=== PATIENT | female | born 1985 | race Caucasian/White ===

== ENCOUNTER 2020-01-07 06:16 | Inpatient (IN) ==
[2020-01-07] MEDS ORDERED: Azithromycin 500 MG in 0.9 % Sodium Chloride 250 ML IVPB ONE (06:25)
[2020-01-07] MEDS ORDERED: Naloxone 0.4 MG/ML INJ IVP PRN (06:25)
[2020-01-07] MEDS ORDERED: Ondansetron 4 MG/2 ML VIAL IVP PRN (06:25)
[2020-01-07] MEDS ORDERED: Lidocaine 1% 20 ML MDV ID PRN (06:25)
[2020-01-07] MEDS ORDERED: *HR* FentaNYL (PF) 100 MCG/2 ML VIAL IVP PRN (06:25)
[2020-01-07] MEDS ORDERED: Famotidine 20 MG/2 ML VIAL IVP PRN (06:25)
[2020-01-07] MEDS ORDERED: Metoclopramide 10 MG/2 ML VIAL IVP PRN (06:25)
[2020-01-07] MEDS ORDERED: Oxytocin 20 units/ LR 1000 mL 20 UNIT/1,000 ML BAG IVC SCH ×3 (06:30→23:31)
[2020-01-07] MEDS: Ringers Solution, Lactated 1,000 ML IVC SCH ×2 (06:41→13:11)
[2020-01-07 06:49] LABS: Basophils % 0.2 %; Eosinophils # 0.1 K/mcL (0.0-0.6); Eosinophils % 1.2 %; Hematocrit 35.2 % (35.3-44.9); Hemoglobin 12.1 g/dL (11.5-15.4); Immature Granulocytes % 0.5 % (0-4); Lymphocytes # 3.4 K/mcL (0.6-4.6); Lymphocytes % 35.5 %; Mean Corpuscular HGB Conc 34.4 g/dL (31.6-35.5); Mean Corpuscular Hemoglobin 30.6 pg (28.0-33.3); Mean Corpuscular Volume 89.1 fL (83.0-100.0); Mean Platelet Volume 12.5 fL (9.4-12.4); Monocytes # 0.6 K/mcL (0.0-1.3); Monocytes % 6.7 %; Neutrophils # 5.3 K/mcL (1.6-8.9); Platelet Count 172 K/mcL (140-400); Red Blood Count 3.95 M/mcL (3.82-4.97); Red Cell Distribution Width 14.1 % (11.5-14.5); Segmented Neutrophils % 55.9 %; White Blood Count 9.5 K/mcL (4.3-11.1)
[2020-01-07 07:27] LABS: Amphetamine Screen,Urine Negative ng/mL (Cutoff=1000); Barbiturate Screen,Urine Negative ng/mL (Cutoff=200)
[2020-01-07 07:28] LABS: Benzodiazepines Screen,Urine Negative ng/mL (Cutoff=300); Cannabinoid Screen,Urine Negative ng/mL (Cutoff = 50); Cocaine Screen,Urine Negative ng/mL (Cutoff= 300); Opiate Screen,Urine Negative ng/mL (Cutoff=300); Phencyclidine Screen,Urine Negative ng/mL (Cutoff=25)
[2020-01-07] MEDS ORDERED: miSOPROStoL 25 MCG TABLET PO PRN (08:10)
[2020-01-07] MEDS ORDERED: Ropivacaine/PF 0.2% 20 ML VIAL ONE (13:09)
[2020-01-07] MEDS ORDERED: *HR* FentaNYL (PF) 100 MCG/2 ML VIAL ONE (13:09)
[2020-01-07] MEDS ORDERED: Epidural Premix (fent/bupiv) 110 ML EP ONE (13:10)
[2020-01-07] MEDS ORDERED: 0.9 % Sodium Chloride 1,000 ML ONE (15:17)
[2020-01-07 18:27] LABS: Basophils % 0.2 %; Eosinophils % 0.2 %; Hemoglobin 11.3 g/dL (11.5-15.4); Immature Granulocytes % 0.6 % (0-4); Lymphocytes # 2.5 K/mcL (0.6-4.6); Lymphocytes % 19.7 %; Mean Corpuscular HGB Conc 32.3 g/dL (31.6-35.5); Mean Corpuscular Hemoglobin 29.3 pg (28.0-33.3); Mean Corpuscular Volume 90.7 fL (83.0-100.0); Monocytes # 0.8 K/mcL (0.0-1.3); Monocytes % 6.5 %; Neutrophils # 9.2 K/mcL (1.6-8.9); Platelet Count 144 K/mcL (140-400); Red Blood Count 3.86 M/mcL (3.82-4.97); Red Cell Distribution Width 14.4 % (11.5-14.5); Segmented Neutrophils % 72.8 %; White Blood Count 12.6 K/mcL (4.3-11.1)
[2020-01-07 18:29] LABS: Protein/Creatinine Ratio,Urine 0.32 mg/mg (0.00-0.20)
[2020-01-07 18:41] LABS: Alanine Aminotransferase 17 Units/L (7-52); Aspartate Amino Transferase 22 Units/L (13-39); BUN/Creatinine Ratio 14 (6-26); Blood Urea Nitrogen 8 mg/dL (6-20); Lactate Dehydrogenase 165 Units/L (140-271); Uric Acid 5.1 mg/dL (2.3-7.6); eGFR For African Americans > 60 (> 60); eGFR For Non-African Americans > 60 (> 60)
[2020-01-07] MEDS ORDERED: Measles/Mumps/Rubella Vacc 0.5 ML VIAL SQ PRN (23:31)
[2020-01-07] MEDS ORDERED: Lanolin 7 G OINT...G. TP PRN (23:31)
[2020-01-07] MEDS ORDERED: Acetaminophen 325 MG TABLET PO PRN (23:31)
[2020-01-07] MEDS ORDERED: Rho Immune Globulin 1,500 UNIT SYRINGE IM PRN (23:31)
[2020-01-07] MEDS ORDERED: Benzocaine/Menthol 56 GM AEROSOL SPRAY TP PRN (23:31)
[2020-01-07] MEDS ORDERED: Oxytocin 20 units/ LR 1000 mL 20 UNIT/1,000 ML BAG IVC ONE (23:31)
[2020-01-08] MEDS: Ibuprofen 600 MG TABLET PO PRN ×4 (00:11→22:01)
[2020-01-08 04:32] LABS: Basophils % 0.1 %; Eosinophils % 0.1 %; Hematocrit 31.5 % (35.3-44.9); Hemoglobin 10.5 g/dL (11.5-15.4); Immature Granulocytes % 0.5 % (0-4); Lymphocytes # 2.7 K/mcL (0.6-4.6); Lymphocytes % 19.6 %; Mean Corpuscular HGB Conc 33.3 g/dL (31.6-35.5); Mean Corpuscular Hemoglobin 29.7 pg (28.0-33.3); Mean Corpuscular Volume 89.2 fL (83.0-100.0); Mean Platelet Volume 11.9 fL (9.4-12.4); Monocytes % 7.1 %; Neutrophils # 9.9 K/mcL (1.6-8.9); Platelet Count 149 K/mcL (140-400); Red Blood Count 3.53 M/mcL (3.82-4.97); Red Cell Distribution Width 14.5 % (11.5-14.5); Segmented Neutrophils % 72.6 %; White Blood Count 13.6 K/mcL (4.3-11.1)
[2020-01-08] MEDS ORDERED: Prenatal Vit/FA 1 EACH TABLET PO SCH (09:00)
[2020-01-08 17:22] VITALS: BP 130/77
== END 2020-01-08 22:20 | disposition home or self-care (01) | DRG 807 ==
LOC: 1NENULAB → 1NENUOBS 23:30
PROVIDERS: ADMIT Student in an Organized Health Care Education/Training Program; ATTEND Student in an Organized Health Care Education/Training Program